=== PATIENT | female | born 1955 | race Caucasian/White ===

== ENCOUNTER 2022-04-24 16:01 | Observation (INO) ==
[2022-04-24 16:31] LABS: Basophils # 0.1 10*3/uL (0.0-0.2); Basophils % 0.5 % (0.0-0.8); Eosinophils # 0.1 10*3/uL (0.0-0.87); Eosinophils % 0.7 % (0.00-10.9); Hematocrit 41.9 VOL% (35.7-47.0); Hemoglobin 13.6 GM/DL (12.0-16.0); Immature Granulocytes % 0.5 %; Immature Granulocytes Absolute 0.06 #; Lymphocytes % 8.8 % (21.3-54.2); Mean Corpuscular HGB Conc 32.5 GM/DL (32-36); Mean Corpuscular Volume 86.2 FL (87-102); Mean Platelet Volume 10.6 FL (9.6-12.0); Monocytes # 0.6 10*3/uL (0.11-0.8); Monocytes % 5.2 % (1.7-12.7); Neutrophils % 84.3 % (38.7-73.9); Platelet Count 261 T/CUMM (130-400); Red Blood Count 4.86 MC/CUMM (3.8-5.5); Red Cell Distribution Width 14.7 % (9.3-17.3); White Blood Count 11.8 T/CUMM (4-12)
[2022-04-24 16:54] LABS: Albumin 3.4 G/DL (3.4-5.0); Bilirubin,Total 0.4 MG/DL (0.20-1.00); Calcium 9.2 MG/DL (8.5-10.1); Osmolality,Calculated 289.3 MOS/KG (273-304); Potassium 4.4 MMOL/L (3.5-5.1); Total Protein 6.8 G/DL (6.4-8.2)
[2022-04-24] MEDS ORDERED: ASPIRIN 325 MG TABLET PO STA (17:17)
[2022-04-24] MEDS ORDERED: FUROSEMIDE 40 MG/4 ML VIAL IV STA (17:18)
[2022-04-24 17:29] LABS: INR 0.9; PT Patient Result 9.9 SECS (10.1-12.1)
[2022-04-24] MEDS ORDERED: MORPHINE 2 MG/1 ML SYRINGE IV ONE (18:06)
[2022-04-24] MEDS ORDERED: ONDANSETRON 4 MG/2 ML VIAL IV ONE (18:06)
[2022-04-24] MEDS ORDERED: hydrALAZINE 20 MG/1 ML VIAL IV STA (18:06)
[2022-04-24] MEDS ORDERED: ONDANSETRON 4 MG/2 ML VIAL IV PRN (19:11)
[2022-04-24] MEDS ORDERED: DOCUSATE SODIUM 100 MG CAPSULE PO PRN (19:11)
[2022-04-24] MEDS ORDERED: ACETAMINOPHEN 325 MG TABLET PO PRN (19:11)
[2022-04-24] MEDS ORDERED: MORPHINE 2 MG/1 ML SYRINGE IV PRN (19:11)
[2022-04-24] MEDS ORDERED: NITROGLYCERIN SL 0.4 MG TABLET SL PRN (19:14)
[2022-04-24] MEDS ORDERED: ENOXAPARIN 100 MG/ML SYRINGE SUBCUT STA (19:45)
[2022-04-24] MEDS: hydrALAZINE 25 MG TABLET PO SCH (22:23)
[2022-04-24] MEDS: ZALEPLON 5 MG CAPSULE PO PRN (22:23)
[2022-04-24] MEDS: NEBIVOLOL 5 MG TABLET PO SCH (22:23)
[2022-04-24] MEDS: DAPAGLIFLOZIN 5 MG TABLET PO SCH (22:23)
[2022-04-24] MEDS: MONTELUKAST 10 MG TABLET PO SCH (22:23)
[2022-04-24] MEDS: INSULIN REGULAR 100 UNIT/ML SUBCUT SCH (22:43)
[2022-04-24] MEDS: DORZOLAMIDE/TIMOLOL OPH SOLN 10 ML BOTTLE LEFT EYE SCH (22:43)
[2022-04-24] MEDS: prednisoLONE ACETATE 1% OPH SUSP 5 ML BOTTLE LEFT EYE SCH (22:44)
[2022-04-25] MEDS: ZALEPLON 5 MG CAPSULE PO PRN ×2 (02:03→22:06)
[2022-04-25 05:47] LABS: Basophils # 0.1 10*3/uL (0.0-0.2); Basophils % 0.7 % (0.0-0.8); Eosinophils # 0.1 10*3/uL (0.0-0.87); Eosinophils % 1.8 % (0.00-10.9); Hematocrit 38.3 VOL% (35.7-47.0); Hemoglobin 12.1 GM/DL (12.0-16.0); Immature Granulocytes % 0.4 %; Immature Granulocytes Absolute 0.03 #; Lymphocytes # 1.6 10*3/uL (1.4-4.0); Mean Corpuscular HGB Conc 31.6 GM/DL (32-36); Mean Corpuscular Volume 87.6 FL (87-102); Mean Platelet Volume 11.1 FL (9.6-12.0); Monocytes % 13.8 % (1.7-12.7); Neutrophils % 61.3 % (38.7-73.9); Platelet Count 226 T/CUMM (130-400); Red Blood Count 4.37 MC/CUMM (3.8-5.5); Red Cell Distribution Width 14.8 % (9.3-17.3); White Blood Count 7.3 T/CUMM (4-12)
[2022-04-25 06:07] LABS: Risk Ratio 4.34; VLDL Cholesterol 39.2 MG/DL
[2022-04-25 06:14] LABS: Alanine Aminotransferase 18 U/L (13-56); Albumin 2.9 G/DL (3.4-5.0); Alkaline Phosphatase 57 U/L (45-117); Aspartate Amino Transferase 16 U/L (0-37); Bilirubin,Total < 0.39 MG/DL (0.20-1.00); Blood Urea Nitrogen 41 MG/DL (7-18); Calcium 8.8 MG/DL (8.5-10.1); Carbon Dioxide 29 MMOL/L (21-32); Chloride 106 MMOL/L (98-107); Glucose 104 MG/DL (74-106); Osmolality,Calculated 290.3 MOS/KG (273-304); Sodium 141 MMOL/L (136-145); Total Protein 6.5 G/DL (6.4-8.2)
[2022-04-25] MEDS: INSULIN REGULAR 100 UNIT/ML SUBCUT SCH ×4 (07:50→22:10)
[2022-04-25] MEDS ORDERED: MAGNESIUM SULF RIDER 2 GM/50 ML PREMIX IV PRN (08:33)
[2022-04-25] MEDS ORDERED: DIAZEPAM 5 MG TABLET PO ONE (08:33)
[2022-04-25] MEDS ORDERED: POTASSIUM CHLORIDE RIDER 10 MEQ/100 ML PREMIX IV PRN (08:33)
[2022-04-25] MEDS ORDERED: diphenhydrAMINE CAP 50 MG CAPSULE PO ONE (08:33)
[2022-04-25] MEDS ORDERED: SODIUM CHLORIDE 0.9% 1,000 ML IV SCH (09:00)
[2022-04-25] MEDS: LEVOTHYROXINE 75 MCG TABLET PO SCH (09:06)
[2022-04-25] MEDS: hydrALAZINE 25 MG TABLET PO SCH ×2 (09:06→22:09)
[2022-04-25] MEDS: ASPIRIN EC 81 MG TABLET PO SCH (09:07)
[2022-04-25] MEDS: CLOPIDOGREL 75 MG TABLET PO SCH (09:07)
[2022-04-25] MEDS: NEBIVOLOL 5 MG TABLET PO SCH (09:07)
[2022-04-25] MEDS: ISOSORBIDE MONONITRATE 60 MG TABLET PO SCH (09:07)
[2022-04-25] MEDS: CETIRIZINE 10 MG TABLET PO SCH (09:07)
[2022-04-25] MEDS: CYANOCOBALAMIN 500 MCG TABLET PO SCH (09:07)
[2022-04-25] MEDS: PANTOPRAZOLE 40 MG TABLET PO SCH (09:07)
[2022-04-25] MEDS: prednisoLONE ACETATE 1% OPH SUSP 5 ML BOTTLE LEFT EYE SCH ×2 (09:07→22:11)
[2022-04-25] MEDS: FUROSEMIDE 40 MG TABLET PO SCH (09:07)
[2022-04-25] MEDS: DORZOLAMIDE/TIMOLOL OPH SOLN 10 ML BOTTLE LEFT EYE SCH ×2 (10:48→21:00)
[2022-04-25] MEDS ORDERED: HEPARIN/NACL 0.9% 2 UNITS/ML 2,000 UNIT/1,000 ML BAG IV ONE (11:13)
[2022-04-25] MEDS ORDERED: MIDAZOLAM 2 MG/2 ML VIAL ONE ×2 (11:28→11:32)
[2022-04-25] MEDS ORDERED: fentaNYL 100 MCG/2 ML VIAL ONE (11:29)
[2022-04-25] MEDS: SODIUM CHLORIDE 0.9% 1,000 ML IV SCH (13:00)
[2022-04-25] MEDS: DAPAGLIFLOZIN 5 MG TABLET PO SCH (22:06)
[2022-04-25] MEDS: MONTELUKAST 10 MG TABLET PO SCH (22:06)
[2022-04-26] MEDS: SODIUM CHLORIDE 0.9% 1,000 ML IV SCH (01:52)
[2022-04-26 04:31] LABS: Basophils # 0.1 10*3/uL (0.0-0.2); Basophils % 0.7 % (0.0-0.8); Eosinophils # 0.2 10*3/uL (0.0-0.87); Eosinophils % 1.9 % (0.00-10.9); Hematocrit 36.8 VOL% (35.7-47.0); Hemoglobin 11.6 GM/DL (12.0-16.0); Immature Granulocytes % 0.3 %; Immature Granulocytes Absolute 0.03 #; Lymphocytes # 1.5 10*3/uL (1.4-4.0); Lymphocytes % 16.7 % (21.3-54.2); Mean Corpuscular HGB Conc 31.5 GM/DL (32-36); Mean Corpuscular Volume 87.4 FL (87-102); Mean Platelet Volume 10.6 FL (9.6-12.0); Monocytes # 1.1 10*3/uL (0.11-0.8); Monocytes % 11.7 % (1.7-12.7); Neutrophils % 68.7 % (38.7-73.9); Platelet Count 212 T/CUMM (130-400); Red Blood Count 4.21 MC/CUMM (3.8-5.5); Red Cell Distribution Width 14.8 % (9.3-17.3)
[2022-04-26 05:05] LABS: Calcium 8.4 MG/DL (8.5-10.1); Osmolality,Calculated 292.8 MOS/KG (273-304)
[2022-04-26] MEDS: LEVOTHYROXINE 75 MCG TABLET PO SCH (06:25)
[2022-04-26 08:02] VITALS: BP 162/76
[2022-04-26] MEDS: INSULIN REGULAR 100 UNIT/ML SUBCUT SCH (08:53)
[2022-04-26] MEDS: CLOPIDOGREL 75 MG TABLET PO SCH (08:54)
[2022-04-26] MEDS: ASPIRIN EC 81 MG TABLET PO SCH (08:54)
[2022-04-26] MEDS: DORZOLAMIDE/TIMOLOL OPH SOLN 10 ML BOTTLE LEFT EYE SCH (08:54)
[2022-04-26] MEDS: hydrALAZINE 25 MG TABLET PO SCH (08:54)
[2022-04-26] MEDS: ISOSORBIDE MONONITRATE 60 MG TABLET PO SCH (08:54)
[2022-04-26] MEDS: FUROSEMIDE 40 MG TABLET PO SCH (08:54)
[2022-04-26] MEDS: CETIRIZINE 10 MG TABLET PO SCH (08:55)
[2022-04-26] MEDS: CYANOCOBALAMIN 500 MCG TABLET PO SCH (08:55)
[2022-04-26] MEDS: PANTOPRAZOLE 40 MG TABLET PO SCH (08:55)
[2022-04-26] MEDS: prednisoLONE ACETATE 1% OPH SUSP 5 ML BOTTLE LEFT EYE SCH (08:55)
== END 2022-04-26 10:50 | disposition home or self-care (01) ==
LOC: N.EDINP 16:01 → N.ED 16:01 → N.EDINP 20:02 → N.TELES 20:26
PROVIDERS: ADMIT Internal Medicine; ATTEND Internal Medicine
PROC: CLCCHCL (ICD-10-PCS; 2022-04-25 09:45)

== ENCOUNTER 2022-05-18 00:58 | Inpatient (IN) ==
[2022-05-18 01:19] LABS: Basophils % 0.3 % (0.0-0.8); Eosinophils # 0.2 10*3/uL (0.0-0.87); Eosinophils % 2.5 % (0.00-10.9); Hemoglobin 14.1 GM/DL (12.0-16.0); Immature Granulocytes % 0.3 %; Immature Granulocytes Absolute 0.02 #; Mean Corpuscular Volume 87.3 FL (87-102); Mean Platelet Volume 10.6 FL (9.6-12.0); Monocytes # 0.7 10*3/uL (0.11-0.8); Monocytes % 9.7 % (1.7-12.7); Neutrophils % 73.2 % (38.7-73.9); Platelet Count 202 T/CUMM (130-400); Red Blood Count 5.04 MC/CUMM (3.8-5.5); White Blood Count 7.2 T/CUMM (4-12)
[2022-05-18 01:36] LABS: Alanine Aminotransferase 19 U/L (13-56); Albumin 3.1 G/DL (3.4-5.0); Alkaline Phosphatase 64 U/L (45-117); Aspartate Amino Transferase 11 U/L (0-37); Bilirubin,Total < 0.39 MG/DL (0.20-1.00); Blood Urea Nitrogen 37 MG/DL (7-18); Calcium 8.8 MG/DL (8.5-10.1); Carbon Dioxide 25 MMOL/L (21-32); Chloride 110 MMOL/L (98-107); Glucose 123 MG/DL (74-106); Osmolality,Calculated 292.1 MOS/KG (273-304); Potassium 4.3 MMOL/L (3.5-5.1); Sodium 142 MMOL/L (136-145); Total Protein 6.7 G/DL (6.4-8.2)
[2022-05-18] MEDS ORDERED: SODIUM CHLORIDE 0.9% 500 ML IV STA (02:29)
[2022-05-18] MEDS ORDERED: ENOXAPARIN 120 MG/0.8 ML SYRINGE SUBCUT STA (04:05)
[2022-05-18] MEDS ORDERED: ASPIRIN EC 325 MG TABLET PO STA (04:05)
[2022-05-18] MEDS ORDERED: NICOTINE 21 MG/24 HR PATCH TRANSDERM PRN (05:43)
[2022-05-18] MEDS ORDERED: ONDANSETRON 4 MG/2 ML VIAL IV PRN (05:43)
[2022-05-18] MEDS ORDERED: hydrALAZINE 20 MG/1 ML VIAL IV PRN (05:43)
[2022-05-18] MEDS ORDERED: ZALEPLON 5 MG CAPSULE PO PRN (05:43)
[2022-05-18] MEDS ORDERED: NITROGLYCERIN SL 0.4 MG TABLET SL PRN (05:46)
[2022-05-18] MEDS: PIPERACILLIN/TAZOBACTAM 3,375 MG in SODIUM CHLORIDE 0.9% 100 ML IV SCH ×2 (06:20→17:05)
[2022-05-18] MEDS: INSULIN LISPRO 100 UNIT/ML SUBCUT SCH ×4 (07:32→21:19)
[2022-05-18] MEDS ORDERED: FUROSEMIDE 40 MG TABLET PO SCH (09:00)
[2022-05-18] MEDS: ISOSORBIDE MONONITRATE 30 MG TABLET PO SCH (10:18)
[2022-05-18] MEDS: CLOPIDOGREL 75 MG TABLET PO SCH (10:18)
[2022-05-18] MEDS: ASPIRIN EC 81 MG TABLET PO SCH (10:18)
[2022-05-18] MEDS: CETIRIZINE 10 MG TABLET PO SCH (10:19)
[2022-05-18] MEDS: OSELTAMIVIR 30 MG CAPSULE PO SCH (10:19)
[2022-05-18] MEDS: BRIMONIDINE 0.2% OPH SOLN 5 ML BOTTLE BOTH EYES SCH ×2 (12:31→20:37)
[2022-05-18] MEDS: SODIUM CHLORIDE 0.9% 1,000 ML IV SCH ×3 (12:31→17:37)
[2022-05-18] MEDS: hydrALAZINE 25 MG TABLET PO SCH (20:28)
[2022-05-19] MEDS: SODIUM CHLORIDE 0.9% 1,000 ML IV SCH (02:37)
[2022-05-19 06:29] LABS: Basophils % 0.5 % (0.0-0.8); Eosinophils # 0.1 10*3/uL (0.0-0.87); Eosinophils % 3.5 % (0.00-10.9); Hematocrit 38.5 VOL% (35.7-47.0); Hemoglobin 12.3 GM/DL (12.0-16.0); Immature Granulocytes % 0.5 %; Immature Granulocytes Absolute 0.02 #; Lymphocytes # 1.2 10*3/uL (1.4-4.0); Lymphocytes % 32.3 % (21.3-54.2); Mean Corpuscular HGB Conc 31.9 GM/DL (32-36); Mean Corpuscular Volume 86.9 FL (87-102); Mean Platelet Volume 10.7 FL (9.6-12.0); Monocytes # 0.4 10*3/uL (0.11-0.8); Monocytes % 10.7 % (1.7-12.7); Neutrophils % 52.5 % (38.7-73.9); Platelet Count 174 T/CUMM (130-400); Red Blood Count 4.43 MC/CUMM (3.8-5.5); Red Cell Distribution Width 15.1 % (9.3-17.3); White Blood Count 3.8 T/CUMM (4-12)
[2022-05-19] MEDS: PIPERACILLIN/TAZOBACTAM 3,375 MG in SODIUM CHLORIDE 0.9% 100 ML IV SCH (06:48)
[2022-05-19 06:50] LABS: Calcium 8.2 MG/DL (8.5-10.1); Osmolality,Calculated 290.1 MOS/KG (273-304)
[2022-05-19] MEDS: INSULIN LISPRO 100 UNIT/ML SUBCUT SCH ×4 (08:42→21:38)
[2022-05-19] MEDS ORDERED: FUROSEMIDE 20 MG/2 ML VIAL IV ONE (08:49)
[2022-05-19] MEDS ORDERED: methylPREDNISolone SOD SUC 125 MG/2 ML VIAL IV ONE (09:02)
[2022-05-19] MEDS: DAPAGLIFLOZIN 5 MG TABLET PO SCH (10:18)
[2022-05-19] MEDS: hydrALAZINE 25 MG TABLET PO SCH ×2 (10:18→21:37)
[2022-05-19] MEDS: CLOPIDOGREL 75 MG TABLET PO SCH (10:18)
[2022-05-19] MEDS: CETIRIZINE 10 MG TABLET PO SCH (10:18)
[2022-05-19] MEDS: LEVOTHYROXINE 75 MCG TABLET PO SCH (10:18)
[2022-05-19] MEDS: ISOSORBIDE MONONITRATE 30 MG TABLET PO SCH (10:18)
[2022-05-19] MEDS: ASPIRIN EC 81 MG TABLET PO SCH (10:18)
[2022-05-19] MEDS: OSELTAMIVIR 30 MG CAPSULE PO SCH (10:18)
[2022-05-19] MEDS: BRIMONIDINE 0.2% OPH SOLN 5 ML BOTTLE BOTH EYES SCH ×2 (10:22→21:39)
[2022-05-19] MEDS ORDERED: GLUCAGON 1 MG VIAL IM PRN (10:55)
[2022-05-19] MEDS ORDERED: DEXTROSE 10% 250 ML BAG IV PRN (10:55)
[2022-05-19] MEDS ORDERED: cefTRIAXone 1,000 MG in SODIUM CHLORIDE 0.9% 100 ML IV SCH (11:00)
[2022-05-19] MEDS: CLINDAMYCIN 150 MG CAPSULE PO SCH ×2 (13:29→21:38)
[2022-05-19] MEDS ORDERED: MONTELUKAST 10 MG TABLET PO SCH (21:00)
[2022-05-19] MEDS: MONTELUKAST 10 MG TABLET PO SCH (21:38)
[2022-05-19] MEDS: methylPREDNISolone SOD SUC 40 MG/1 ML VIAL IV SCH (21:39)
[2022-05-20] MEDS: CLINDAMYCIN 150 MG CAPSULE PO SCH ×3 (05:30→21:05)
[2022-05-20 06:00] LABS: Basophils % 0.2 % (0.0-0.8); Hematocrit 39.4 VOL% (35.7-47.0); Hemoglobin 12.7 GM/DL (12.0-16.0); Immature Granulocytes % 0.5 %; Immature Granulocytes Absolute 0.02 #; Lymphocytes # 0.8 10*3/uL (1.4-4.0); Lymphocytes % 20.3 % (21.3-54.2); Mean Corpuscular HGB Conc 32.2 GM/DL (32-36); Mean Corpuscular Volume 84.9 FL (87-102); Mean Platelet Volume 11.1 FL (9.6-12.0); Monocytes # 0.1 10*3/uL (0.11-0.8); Monocytes % 2.7 % (1.7-12.7); Neutrophils % 76.3 % (38.7-73.9); Platelet Count 205 T/CUMM (130-400); Red Blood Count 4.64 MC/CUMM (3.8-5.5)
[2022-05-20 06:18] LABS: Calcium 8.5 MG/DL (8.5-10.1); Osmolality,Calculated 287.8 MOS/KG (273-304); Potassium 4.4 MMOL/L (3.5-5.1)
[2022-05-20] MEDS: hydrALAZINE 25 MG TABLET PO SCH ×2 (10:02→21:04)
[2022-05-20] MEDS: ISOSORBIDE MONONITRATE 30 MG TABLET PO SCH (10:02)
[2022-05-20] MEDS: LEVOTHYROXINE 75 MCG TABLET PO SCH (10:02)
[2022-05-20] MEDS: OSELTAMIVIR 30 MG CAPSULE PO SCH (10:02)
[2022-05-20] MEDS: MONTELUKAST 10 MG TABLET PO SCH ×2 (10:02→21:05)
[2022-05-20] MEDS: ASPIRIN EC 81 MG TABLET PO SCH (10:02)
[2022-05-20] MEDS: CLOPIDOGREL 75 MG TABLET PO SCH (10:02)
[2022-05-20] MEDS: CETIRIZINE 10 MG TABLET PO SCH (10:02)
[2022-05-20] MEDS: INSULIN LISPRO 100 UNIT/ML SUBCUT SCH ×4 (10:03→21:04)
[2022-05-20] MEDS: methylPREDNISolone SOD SUC 40 MG/1 ML VIAL IV SCH (10:03)
[2022-05-20] MEDS: DAPAGLIFLOZIN 5 MG TABLET PO SCH (10:08)
[2022-05-20] MEDS: BRIMONIDINE 0.2% OPH SOLN 5 ML BOTTLE BOTH EYES SCH ×2 (10:09→21:04)
[2022-05-21 05:54] LABS: Basophils % 0.3 % (0.0-0.8); Hematocrit 37.6 VOL% (35.7-47.0); Hemoglobin 12.4 GM/DL (12.0-16.0); Immature Granulocytes % 0.6 %; Immature Granulocytes Absolute 0.05 #; Lymphocytes # 1.5 10*3/uL (1.4-4.0); Lymphocytes % 19.1 % (21.3-54.2); Mean Corpuscular Volume 84.9 FL (87-102); Mean Platelet Volume 10.9 FL (9.6-12.0); Monocytes # 0.6 10*3/uL (0.11-0.8); Monocytes % 7.7 % (1.7-12.7); Neutrophils % 72.3 % (38.7-73.9); Platelet Count 238 T/CUMM (130-400); Red Blood Count 4.43 MC/CUMM (3.8-5.5); White Blood Count 7.8 T/CUMM (4-12)
[2022-05-21 06:21] LABS: Calcium 8.4 MG/DL (8.5-10.1); Osmolality,Calculated 295.4 MOS/KG (273-304); Potassium 4.2 MMOL/L (3.5-5.1)
[2022-05-21] MEDS: CLINDAMYCIN 150 MG CAPSULE PO SCH (06:35)
[2022-05-21 07:48] VITALS: BP 178/66
[2022-05-21] MEDS ORDERED: predniSONE 20 MG TABLET PO SCH (09:00)
[2022-05-21] MEDS: ASPIRIN EC 81 MG TABLET PO SCH (10:48)
[2022-05-21] MEDS: LEVOTHYROXINE 75 MCG TABLET PO SCH (10:48)
[2022-05-21] MEDS: hydrALAZINE 25 MG TABLET PO SCH (10:49)
[2022-05-21] MEDS: CLOPIDOGREL 75 MG TABLET PO SCH (10:49)
[2022-05-21] MEDS: OSELTAMIVIR 30 MG CAPSULE PO SCH (10:49)
[2022-05-21] MEDS: ISOSORBIDE MONONITRATE 30 MG TABLET PO SCH (10:49)
[2022-05-21] MEDS: MONTELUKAST 10 MG TABLET PO SCH (10:49)
[2022-05-21] MEDS: CETIRIZINE 10 MG TABLET PO SCH (10:49)
[2022-05-21] MEDS: INSULIN LISPRO 100 UNIT/ML SUBCUT SCH (10:50)
[2022-05-21] MEDS: BRIMONIDINE 0.2% OPH SOLN 5 ML BOTTLE BOTH EYES SCH (10:50)
[2022-05-21] MEDS: DAPAGLIFLOZIN 5 MG TABLET PO SCH (10:52)
== END 2022-05-21 12:20 | disposition home or self-care (01) | DRG 280 ==
LOC: N.ED 00:58 → N.EDINP 05:43 → N.TELEN 15:09
PROVIDERS: ADMIT Internal Medicine; ATTEND Internal Medicine

== ENCOUNTER 2022-07-14 02:56 | Observation (INO) ==
[2022-07-14 03:30] LABS: Basophils # 0.1 10*3/uL (0.0-0.2); Basophils % 0.6 % (0.0-0.8); Eosinophils # 0.4 10*3/uL (0.0-0.87); Eosinophils % 3.5 % (0.00-10.9); Hematocrit 39.9 VOL% (35.7-47.0); Hemoglobin 12.7 GM/DL (12.0-16.0); Immature Granulocytes % 0.6 %; Immature Granulocytes Absolute 0.07 #; Lymphocytes # 1.4 10*3/uL (1.4-4.0); Lymphocytes % 11.9 % (21.3-54.2); Mean Corpuscular HGB Conc 31.8 GM/DL (32-36); Mean Corpuscular Volume 87.9 FL (87-102); Mean Platelet Volume 10.8 FL (9.6-12.0); Monocytes % 8.9 % (1.7-12.7); Neutrophils % 74.5 % (38.7-73.9); Platelet Count 257 T/CUMM (130-400); Red Blood Count 4.54 MC/CUMM (3.8-5.5); Red Cell Distribution Width 15.2 % (9.3-17.3); White Blood Count 11.3 T/CUMM (4-12)
[2022-07-14] MEDS ORDERED: DILTIAZEM INJ 100 MG in SODIUM CHLORIDE 0.9% 100 ML IV SCH (03:30)
[2022-07-14] MEDS ORDERED: ONDANSETRON 4 MG/2 ML VIAL ONE (03:31)
[2022-07-14] MEDS ORDERED: DILTIAZEM 50 MG/10 ML VIAL IV STA (03:42)
[2022-07-14] MEDS ORDERED: ASPIRIN 325 MG TABLET PO STA (03:42)
[2022-07-14] MEDS ORDERED: ENOXAPARIN 100 MG/ML SYRINGE SUBCUT STA (03:42)
[2022-07-14] MEDS ORDERED: ONDANSETRON 4 MG/2 ML VIAL IV STA (03:48)
[2022-07-14] MEDS ORDERED: MORPHINE 2 MG/1 ML SYRINGE IV STA (03:48)
[2022-07-14 03:52] LABS: Alanine Aminotransferase 22 U/L (13-56); Albumin 3.1 G/DL (3.4-5.0); Alkaline Phosphatase 76 U/L (45-117); Aspartate Amino Transferase 6 U/L (0-37); Bilirubin,Total < 0.39 MG/DL (0.20-1.00); Blood Urea Nitrogen 43 MG/DL (7-18); Calcium 9.1 MG/DL (8.5-10.1); Carbon Dioxide 23 MMOL/L (21-32); Chloride 106 MMOL/L (98-107); Glucose 320 MG/DL (74-106); Osmolality,Calculated 297.7 MOS/KG (273-304); Sodium 138 MMOL/L (136-145); Total Protein 6.7 G/DL (6.4-8.2)
[2022-07-14 03:53] LABS: Bacteria,Urine Occasional /HPF (Few); Mucus,Urine Occasional /LPF (Occasional); RBC,Urine 5 /HPF (0-4); Squamous Epithelial Cell,Urine Occasional /HPF (0-10)
[2022-07-14 03:54] LABS: Bilirubin,Urine Negative (Negative); Blood, Urine Negative (Negative); Glucose,Urine (UA) >=1000 mg/dL (Negative); Ketones,Urine Negative (Negative); Nitrite,Urine Negative (Negative); Protein,Urine 100 mg/dL (Negative); Urine Appearance Clear (Clear); Urine Color Yellow (Yellow); Urine Specific Gravity 1.015 (1.001-1.035); Urine Urobilinogen 0.2 eU/dL (<2.0)
[2022-07-14] MEDS ORDERED: INSULIN REGULAR 100 UNIT/ML SUBCUT STA (03:56)
[2022-07-14 03:59] LABS: INR 0.8; PT Patient Result 9.4 SECS (10.1-12.1)
[2022-07-14 04:19] LABS: Thyroid Stimulating Hormone 4.02 uIU/ml (0.358-3.74)
[2022-07-14] MEDS ORDERED: MORPHINE 2 MG/1 ML SYRINGE IV PRN (05:07)
[2022-07-14] MEDS ORDERED: ONDANSETRON 4 MG/2 ML VIAL IV PRN (05:07)
[2022-07-14] MEDS ORDERED: ACETAMINOPHEN 325 MG TABLET PO PRN (05:07)
[2022-07-14] MEDS ORDERED: hydrALAZINE 20 MG/1 ML VIAL IV PRN (05:07)
[2022-07-14 06:12] LABS: Barbiturates Screen,Urine Negative (Negative); Benzodiazepines Screen,Urine Negative (Negative); Cannabinoid Screen,Urine Negative (Negative); Opiate Screen,Urine Negative (Negative); Phencyclidine Screen,Urine Negative (Negative)
[2022-07-14 07:53] LABS: Free T4 (Free Thyroxine) 0.9 NG/DL (0.76-1.46)
[2022-07-14] MEDS ORDERED: PANTOPRAZOLE 40 MG TABLET PO SCH (09:00)
[2022-07-14] MEDS ORDERED: METOPROLOL TARTRATE 25 MG TABLET PO SCH (09:00)
[2022-07-14] MEDS ORDERED: FUROSEMIDE 40 MG/4 ML VIAL IV ONE (09:57)
[2022-07-14] MEDS ORDERED: ASCORBIC ACID 500 MG TABLET PO SCH (09:58)
[2022-07-14] MEDS ORDERED: ASPIRIN EC 81 MG TABLET PO SCH (10:00)
[2022-07-14] MEDS ORDERED: CLOPIDOGREL 75 MG TABLET PO SCH (10:00)
[2022-07-14] MEDS ORDERED: ISOSORBIDE MONONITRATE 60 MG TABLET PO SCH (10:00)
[2022-07-14] MEDS ORDERED: DAPAGLIFLOZIN 5 MG TABLET PO SCH (10:00)
[2022-07-14] MEDS: INSULIN LISPRO 100 UNIT/ML SUBCUT SCH ×3 (10:15→17:58)
[2022-07-14] MEDS ORDERED: ENOXAPARIN 40 MG/0.4 ML SYRINGE SUBCUT SCH (16:00)
[2022-07-14 16:44] VITALS: BP 104/64
== END 2022-07-14 16:58 | disposition home or self-care (01) ==
LOC: N.ED 02:56 → N.EDINP 02:56 → N.TELEN 07:38
PROVIDERS: ADMIT Emergency Medicine; ATTEND Emergency Medicine

== ENCOUNTER 2022-08-14 15:55 | Inpatient (IN) ==
[2022-08-14] MEDS ORDERED: ACETAMINOPHEN 325 MG TABLET PO ONE (16:32)
[2022-08-14] MEDS ORDERED: ONDANSETRON 4 MG/2 ML VIAL IV ONE (16:32)
[2022-08-14] MEDS ORDERED: SODIUM CHLORIDE 0.9% 500 ML IV STA ×2 (16:32→17:23)
[2022-08-14 16:58] LABS: Basophils % 0.4 % (0.0-0.8); Eosinophils % 0.1 % (0.00-10.9); Hematocrit 40.9 VOL% (35.7-47.0); Immature Granulocytes % 0.6 %; Immature Granulocytes Absolute 0.06 #; Lymphocytes # 0.8 10*3/uL (1.4-4.0); Lymphocytes % 7.9 % (21.3-54.2); Mean Corpuscular HGB Conc 31.8 GM/DL (32-36); Mean Corpuscular Volume 84.5 FL (87-102); Mean Platelet Volume 9.9 FL (9.6-12.0); Monocytes # 1.2 10*3/uL (0.11-0.8); Monocytes % 11.3 % (1.7-12.7); Neutrophils % 79.7 % (38.7-73.9); Platelet Count 282 T/CUMM (130-400); Red Blood Count 4.84 MC/CUMM (3.8-5.5); Red Cell Distribution Width 14.6 % (9.3-17.3)
[2022-08-14 17:17] LABS: Albumin 2.4 G/DL (3.4-5.0); Bilirubin,Total 0.5 MG/DL (0.20-1.00); Calcium 8.8 MG/DL (8.5-10.1); Osmolality,Calculated 287.2 MOS/KG (273-304); Potassium 3.9 MMOL/L (3.5-5.1); Total Protein 7.7 G/DL (6.4-8.2)
[2022-08-14 17:33] LABS: Lymphocytes 11 % (20-55); Total Cells Counted 100
[2022-08-14 17:34] LABS: Platelet Estimate Adequate
[2022-08-14 17:35] LABS: PT Patient Result 10.6 SECS (10.1-12.1)
[2022-08-14] MEDS ORDERED: PROCHLORPERAZINE 10 MG/2 ML VIAL ONE (18:28)
[2022-08-14] MEDS ORDERED: PROCHLORPERAZINE 10 MG/2 ML VIAL IV ONE (18:28)
[2022-08-14 18:32] LABS: Bilirubin,Urine Negative (Negative); Blood, Urine Moderate mg/dL (Negative); Glucose,Urine (UA) 250 mg/dL (Negative); Ketones,Urine Negative (Negative); Nitrite,Urine Negative (Negative); Protein,Urine >=300 mg/dL (Negative); Urine Appearance Cloudy (Clear); Urine Color Yellow (Yellow); Urine Urobilinogen 0.2 eU/dL (<2.0)
[2022-08-14 18:36] LABS: Bacteria,Urine Moderate /HPF (Few); Hyaline Casts,Urine 10 /LPF (0-3); Mucus,Urine Occasional /LPF (Occasional); RBC,Urine 50 /HPF (0-4); Squamous Epithelial Cell,Urine Occasional /HPF (0-10)
[2022-08-14] MEDS ORDERED: cefTRIAXone 1,000 MG in SODIUM CHLORIDE 0.9% 100 ML IV STA (18:39)
[2022-08-14] MEDS ORDERED: MAGNESIUM SULF RIDER 4 GM/100 ML PREMIX IV PRN (19:28)
[2022-08-14] MEDS ORDERED: hydrALAZINE 20 MG/1 ML VIAL IV PRN (19:28)
[2022-08-14] MEDS ORDERED: MAGNESIUM SULF RIDER 2 GM/50 ML PREMIX IV PRN (19:28)
[2022-08-14] MEDS: LACTATED RINGERS 1,000 ML IV SCH (21:20)
[2022-08-14] MEDS: ENOXAPARIN 40 MG/0.4 ML SYRINGE SUBCUT SCH (23:20)
[2022-08-14] MEDS: ONDANSETRON 4 MG/2 ML VIAL IV PRN (23:21)
[2022-08-15] MEDS: INSULIN LISPRO 100 UNIT/ML SUBCUT SCH ×5 (00:28→22:01)
[2022-08-15] MEDS: PROMETHAZINE 25 MG/1 ML VIAL IM PRN ×2 (03:05→13:06)
[2022-08-15 06:01] LABS: Basophils % 0.4 % (0.0-0.8); Eosinophils % 0.2 % (0.00-10.9); Hematocrit 33.3 VOL% (35.7-47.0); Hemoglobin 10.9 GM/DL (12.0-16.0); Immature Granulocytes % 0.7 %; Immature Granulocytes Absolute 0.07 #; Lymphocytes # 0.8 10*3/uL (1.4-4.0); Lymphocytes % 7.5 % (21.3-54.2); Mean Corpuscular HGB Conc 32.7 GM/DL (32-36); Mean Corpuscular Volume 85.2 FL (87-102); Mean Platelet Volume 10.5 FL (9.6-12.0); Monocytes # 1.3 10*3/uL (0.11-0.8); Monocytes % 12.2 % (1.7-12.7); Platelet Count 255 T/CUMM (130-400); Red Blood Count 3.91 MC/CUMM (3.8-5.5); Red Cell Distribution Width 14.6 % (9.3-17.3)
[2022-08-15 06:49] LABS: Calcium 8.1 MG/DL (8.5-10.1); Osmolality,Calculated 289.8 MOS/KG (273-304); Potassium 3.9 MMOL/L (3.5-5.1); Thyroid Stimulating Hormone 4.31 uIU/ml (0.358-3.74)
[2022-08-15] MEDS: LACTATED RINGERS 1,000 ML IV SCH ×2 (07:50→17:53)
[2022-08-15] MEDS: PANTOPRAZOLE 40 MG VIAL IV SCH (08:24)
[2022-08-15] MEDS: ONDANSETRON 4 MG/2 ML VIAL IV PRN ×2 (11:17→19:38)
[2022-08-15] MEDS ORDERED: DEXTROSE 10% 1,000 ML IV PRN (17:47)
[2022-08-15] MEDS ORDERED: cefTRIAXone 1,000 MG in SODIUM CHLORIDE 0.9% 100 ML IV SCH (18:00)
[2022-08-15] MEDS ORDERED: AMINO ACIDS/DEXT/LYTES 4.25-5% 2,000 ML IV SCH (18:00)
[2022-08-15] MEDS: METOCLOPRAMIDE 10 MG/2 ML VIAL IV SCH (18:43)
[2022-08-15] MEDS: ENOXAPARIN 40 MG/0.4 ML SYRINGE SUBCUT SCH (22:04)
[2022-08-15] MEDS: PIPERACILLIN/TAZOBACTAM 3,375 MG in SODIUM CHLORIDE 0.9% 100 ML IV SCH (22:04)
[2022-08-15] MEDS: FAT EMULSION 20% 250 ML IV SCH (23:05)
[2022-08-16] MEDS: METOCLOPRAMIDE 10 MG/2 ML VIAL IV SCH ×5 (00:55→23:54)
[2022-08-16] MEDS: ONDANSETRON 4 MG/2 ML VIAL IV PRN ×2 (02:05→12:54)
[2022-08-16] MEDS: PROMETHAZINE 25 MG/1 ML VIAL IM PRN ×2 (03:28→23:52)
[2022-08-16 05:14] LABS: Basophils # 0.1 10*3/uL (0.0-0.2); Basophils % 0.6 % (0.0-0.8); Eosinophils # 0.1 10*3/uL (0.0-0.87); Eosinophils % 1.1 % (0.00-10.9); Hematocrit 35.5 VOL% (35.7-47.0); Immature Granulocytes % 0.6 %; Immature Granulocytes Absolute 0.06 #; Lymphocytes # 1.2 10*3/uL (1.4-4.0); Lymphocytes % 11.9 % (21.3-54.2); Mean Platelet Volume 10.6 FL (9.6-12.0); Monocytes % 10.4 % (1.7-12.7); Neutrophils % 75.4 % (38.7-73.9); Platelet Count 289 T/CUMM (130-400); Red Blood Count 4.08 MC/CUMM (3.8-5.5); Red Cell Distribution Width 14.7 % (9.3-17.3); White Blood Count 9.74 T/CUMM (4-12)
[2022-08-16] MEDS: PIPERACILLIN/TAZOBACTAM 3,375 MG in SODIUM CHLORIDE 0.9% 100 ML IV SCH ×3 (05:30→22:12)
[2022-08-16 05:32] LABS: Calcium 8.5 MG/DL (8.5-10.1); Osmolality,Calculated 287.5 MOS/KG (273-304)
[2022-08-16] MEDS: DAPAGLIFLOZIN 5 MG TABLET PO SCH (08:35)
[2022-08-16] MEDS: INSULIN LISPRO 100 UNIT/ML SUBCUT SCH ×4 (08:35→23:37)
[2022-08-16] MEDS: PANTOPRAZOLE 40 MG VIAL IV SCH ×2 (08:35→22:13)
[2022-08-16] MEDS: hydrALAZINE 25 MG TABLET PO SCH ×3 (08:36→23:37)
[2022-08-16] MEDS: ASPIRIN EC 81 MG TABLET PO SCH (08:36)
[2022-08-16] MEDS: ISOSORBIDE MONONITRATE 60 MG TABLET PO SCH (08:36)
[2022-08-16] MEDS ORDERED: CLOPIDOGREL 75 MG TABLET PO SCH (09:00)
[2022-08-16] MEDS: LACTATED RINGERS 1,000 ML IV SCH (11:26)
[2022-08-16] MEDS: DILTIAZEM 30 MG TABLET PO SCH ×3 (12:54→23:55)
[2022-08-16] MEDS ORDERED: DEXTROSE 10% 250 ML BAG IV PRN (14:01)
[2022-08-16] MEDS ORDERED: GLUCAGON 1 MG VIAL IM PRN (14:01)
[2022-08-16] MEDS ORDERED: AMINO ACIDS/DEXT/LYTES 4.25-5% 1,000 ML IV SCH (17:00)
[2022-08-16] MEDS: FAT EMULSION 20% 250 ML IV SCH (17:56)
[2022-08-16] MEDS ORDERED: LUBIPROSTONE 24 MCG CAPSULE PO SCH (21:00)
[2022-08-16] MEDS: POLYETHYLENE GLYCOL POWDER 17 GM PACK PO SCH (22:14)
[2022-08-16] MEDS: DOCUSATE SODIUM 100 MG CAPSULE PO SCH (22:15)
[2022-08-17] MEDS ORDERED: FUROSEMIDE 20 MG/2 ML VIAL IV ONE (01:42)
[2022-08-17] MEDS ORDERED: FUROSEMIDE 40 MG/4 ML VIAL ONE (01:44)
[2022-08-17] MEDS: METOCLOPRAMIDE 10 MG/2 ML VIAL IV SCH ×3 (06:05→17:48)
[2022-08-17] MEDS: PIPERACILLIN/TAZOBACTAM 3,375 MG in SODIUM CHLORIDE 0.9% 100 ML IV SCH (06:05)
[2022-08-17] MEDS: DILTIAZEM 30 MG TABLET PO SCH ×3 (06:05→17:57)
[2022-08-17 06:12] LABS: Calcium 8.5 MG/DL (8.5-10.1); Osmolality,Calculated 285.7 MOS/KG (273-304)
[2022-08-17 06:16] LABS: Basophils # 0.1 10*3/uL (0.0-0.2); Basophils % 0.4 % (0.0-0.8); Eosinophils # 0.1 10*3/uL (0.0-0.87); Eosinophils % 0.9 % (0.00-10.9); Hematocrit 33.8 VOL% (35.7-47.0); Hemoglobin 10.7 GM/DL (12.0-16.0); Immature Granulocytes % 0.8 %; Immature Granulocytes Absolute 0.11 #; Lymphocytes # 0.7 10*3/uL (1.4-4.0); Lymphocytes % 5.2 % (21.3-54.2); Mean Corpuscular HGB Conc 31.7 GM/DL (32-36); Mean Corpuscular Volume 86.2 FL (87-102); Mean Platelet Volume 10.4 FL (9.6-12.0); Monocytes # 1.1 10*3/uL (0.11-0.8); Monocytes % 7.7 % (1.7-12.7); Platelet Count 275 T/CUMM (130-400); Red Blood Count 3.92 MC/CUMM (3.8-5.5); Red Cell Distribution Width 14.7 % (9.3-17.3); White Blood Count 14.11 T/CUMM (4-12)
[2022-08-17] MEDS ORDERED: LINACLOTIDE 145 MCG CAPSULE PO SCH (07:30)
[2022-08-17] MEDS: INSULIN LISPRO 100 UNIT/ML SUBCUT SCH ×4 (08:20→23:39)
[2022-08-17] MEDS ORDERED: propofoL 200 MG/20 ML VIAL IV ONE (08:47)
[2022-08-17] MEDS ORDERED: LIDOCAINE 2% 5 ML VIAL ONE (08:47)
[2022-08-17] MEDS: POLYETHYLENE GLYCOL POWDER 17 GM PACK PO SCH ×2 (10:37→22:41)
[2022-08-17] MEDS: DAPAGLIFLOZIN 5 MG TABLET PO SCH (10:38)
[2022-08-17] MEDS: PANTOPRAZOLE 40 MG VIAL IV SCH ×2 (10:38→22:43)
[2022-08-17] MEDS: ASPIRIN EC 81 MG TABLET PO SCH (10:38)
[2022-08-17] MEDS: ISOSORBIDE MONONITRATE 60 MG TABLET PO SCH (10:38)
[2022-08-17] MEDS: DOCUSATE SODIUM 100 MG CAPSULE PO SCH ×2 (10:38→22:43)
[2022-08-17] MEDS: hydrALAZINE 25 MG TABLET PO SCH ×3 (10:43→22:46)
[2022-08-17] MEDS: LEVOFLOXACIN INJ 500 MG/100 ML PREMIX IV SCH (11:33)
[2022-08-17] MEDS: LACTATED RINGERS 1,000 ML IV SCH (11:54)
[2022-08-17] MEDS: ONDANSETRON 4 MG/2 ML VIAL IV PRN (17:05)
[2022-08-17] MEDS: MONTELUKAST 10 MG TABLET PO SCH (22:43)
[2022-08-17] MEDS: ENOXAPARIN 40 MG/0.4 ML SYRINGE SUBCUT SCH (22:45)
[2022-08-18] MEDS: DILTIAZEM 30 MG TABLET PO SCH ×4 (00:22→18:09)
[2022-08-18] MEDS: METOCLOPRAMIDE 10 MG/2 ML VIAL IV SCH ×2 (00:23→07:31)
[2022-08-18 05:37] LABS: Basophils % 0.5 % (0.0-0.8); Eosinophils # 0.4 10*3/uL (0.0-0.87); Eosinophils % 4.5 % (0.00-10.9); Hematocrit 28.3 VOL% (35.7-47.0); Hemoglobin 8.9 GM/DL (12.0-16.0); Immature Granulocytes % 1.8 %; Immature Granulocytes Absolute 0.14 #; Lymphocytes # 1.5 10*3/uL (1.4-4.0); Lymphocytes % 19.7 % (21.3-54.2); Mean Corpuscular HGB Conc 31.4 GM/DL (32-36); Mean Corpuscular Volume 87.1 FL (87-102); Mean Platelet Volume 10.3 FL (9.6-12.0); Monocytes # 0.7 10*3/uL (0.11-0.8); Monocytes % 9.1 % (1.7-12.7); Neutrophils % 64.4 % (38.7-73.9); Platelet Count 303 T/CUMM (130-400); Red Blood Count 3.25 MC/CUMM (3.8-5.5); Red Cell Distribution Width 14.7 % (9.3-17.3); White Blood Count 7.81 T/CUMM (4-12)
[2022-08-18 05:50] LABS: Calcium 8.1 MG/DL (8.5-10.1); Osmolality,Calculated 291.7 MOS/KG (273-304); Potassium 4.2 MMOL/L (3.5-5.1)
[2022-08-18 06:16] LABS: Platelet Estimate Adequate
[2022-08-18] MEDS: LINACLOTIDE 145 MCG CAPSULE PO SCH (07:30)
[2022-08-18] MEDS: PROMETHAZINE INJ 25 MG in SODIUM CHLORIDE 0.9% 50 ML IV SCH ×3 (07:52→20:48)
[2022-08-18] MEDS: INSULIN LISPRO 100 UNIT/ML SUBCUT SCH ×5 (10:08→21:00)
[2022-08-18] MEDS: PANTOPRAZOLE 40 MG VIAL IV SCH ×2 (11:45→20:46)
[2022-08-18] MEDS: hydrALAZINE 25 MG TABLET PO SCH ×3 (11:51→20:49)
[2022-08-18] MEDS: DOCUSATE SODIUM 100 MG CAPSULE PO SCH ×2 (11:51→20:48)
[2022-08-18] MEDS: DAPAGLIFLOZIN 5 MG TABLET PO SCH (11:51)
[2022-08-18] MEDS: ASPIRIN EC 81 MG TABLET PO SCH (11:51)
[2022-08-18] MEDS: ISOSORBIDE MONONITRATE 60 MG TABLET PO SCH (11:52)
[2022-08-18] MEDS: POLYETHYLENE GLYCOL POWDER 17 GM PACK PO SCH ×2 (11:52→20:49)
[2022-08-18] MEDS: LACTATED RINGERS 1,000 ML IV SCH (14:11)
[2022-08-18] MEDS: LEVOFLOXACIN INJ 500 MG/100 ML PREMIX IV SCH (15:36)
[2022-08-18] MEDS ORDERED: MYLANTA/LIDO VISC 2:1 300 ML BOTTLE SWISH/SPIT PRN (16:30)
[2022-08-18] MEDS: ENOXAPARIN 40 MG/0.4 ML SYRINGE SUBCUT SCH (20:48)
[2022-08-18] MEDS: MONTELUKAST 10 MG TABLET PO SCH (20:48)
[2022-08-19] MEDS: DILTIAZEM 30 MG TABLET PO SCH ×4 (00:51→19:55)
[2022-08-19] MEDS: PROMETHAZINE INJ 25 MG in SODIUM CHLORIDE 0.9% 50 ML IV SCH (03:05)
[2022-08-19 05:47] LABS: Basophils % 0.5 % (0.0-0.8); Eosinophils # 0.2 10*3/uL (0.0-0.87); Eosinophils % 3.1 % (0.00-10.9); Hemoglobin 6.8 GM/DL (12.0-16.0); Immature Granulocytes % 2.7 %; Immature Granulocytes Absolute 0.21 #; Lymphocytes # 1.5 10*3/uL (1.4-4.0); Lymphocytes % 19.2 % (21.3-54.2); Mean Corpuscular HGB Conc 30.9 GM/DL (32-36); Mean Corpuscular Volume 87.6 FL (87-102); Mean Platelet Volume 10.7 FL (9.6-12.0); Monocytes # 0.6 10*3/uL (0.11-0.8); Neutrophils % 66.5 % (38.7-73.9); Platelet Count 310 T/CUMM (130-400); Red Blood Count 2.51 MC/CUMM (3.8-5.5); Red Cell Distribution Width 14.8 % (9.3-17.3); White Blood Count 7.83 T/CUMM (4-12)
[2022-08-19 06:05] LABS: Calcium 8.2 MG/DL (8.5-10.1); Osmolality,Calculated 302.3 MOS/KG (273-304); Potassium 4.4 MMOL/L (3.5-5.1)
[2022-08-19] MEDS: INSULIN LISPRO 100 UNIT/ML SUBCUT SCH ×4 (08:19→21:49)
[2022-08-19] MEDS: PANTOPRAZOLE 40 MG VIAL IV SCH ×2 (08:24→21:00)
[2022-08-19] MEDS: DAPAGLIFLOZIN 5 MG TABLET PO SCH (08:25)
[2022-08-19] MEDS: METOCLOPRAMIDE 5 MG TABLET PO SCH ×2 (08:26→11:56)
[2022-08-19] MEDS: ASPIRIN EC 81 MG TABLET PO SCH (08:26)
[2022-08-19] MEDS: LINACLOTIDE 145 MCG CAPSULE PO SCH (08:26)
[2022-08-19] MEDS: DOCUSATE SODIUM 100 MG CAPSULE PO SCH (08:26)
[2022-08-19] MEDS: POLYETHYLENE GLYCOL POWDER 17 GM PACK PO SCH (08:28)
[2022-08-19] MEDS: ISOSORBIDE MONONITRATE 60 MG TABLET PO SCH (08:28)
[2022-08-19] MEDS: hydrALAZINE 25 MG TABLET PO SCH ×3 (11:20→21:54)
[2022-08-19] MEDS: LEVOFLOXACIN INJ 500 MG/100 ML PREMIX IV SCH (12:07)
[2022-08-19] MEDS ORDERED: SODIUM CHLORIDE 0.9% 1,000 ML IV PRN (12:18)
[2022-08-19] MEDS: ONDANSETRON 4 MG/2 ML VIAL IV PRN (12:19)
[2022-08-19] MEDS: MONTELUKAST 10 MG TABLET PO SCH (21:50)
[2022-08-19] MEDS: ENOXAPARIN 40 MG/0.4 ML SYRINGE SUBCUT SCH ×2 (21:52)
[2022-08-20] MEDS: DILTIAZEM 30 MG TABLET PO SCH ×4 (00:14→17:01)
[2022-08-20 05:48] LABS: Basophils # 0.1 10*3/uL (0.0-0.2); Basophils % 0.9 % (0.0-0.8); Eosinophils # 0.4 10*3/uL (0.0-0.87); Eosinophils % 3.6 % (0.00-10.9); Hematocrit 28.1 VOL% (35.7-47.0); Hemoglobin 8.9 GM/DL (12.0-16.0); Immature Granulocytes % 5.9 %; Immature Granulocytes Absolute 0.58 #; Lymphocytes # 1.3 10*3/uL (1.4-4.0); Lymphocytes % 13.5 % (21.3-54.2); Mean Corpuscular HGB Conc 31.7 GM/DL (32-36); Mean Corpuscular Volume 89.8 FL (87-102); Mean Platelet Volume 10.2 FL (9.6-12.0); Monocytes # 0.7 10*3/uL (0.11-0.8); Monocytes % 7.4 % (1.7-12.7); NRBC # 0.02 10*3/uL; Neutrophils % 68.7 % (38.7-73.9); Platelet Count 348 T/CUMM (130-400); Red Blood Count 3.13 MC/CUMM (3.8-5.5); Red Cell Distribution Width 15.1 % (9.3-17.3); White Blood Count 9.91 T/CUMM (4-12)
[2022-08-20 06:11] LABS: Folate 7.71 NG/ML (5.38-24.0); Vitamin B12 1758 PG/ML (211-911)
[2022-08-20 06:16] LABS: % Iron Saturation 44.3 % (18-50); Ferritin 90.7 ng/mL (8-252)
[2022-08-20 06:36] LABS: Anisocytosis 1+; Band Neutrophils 4 % (0-10); Burr Cells Few; Eosinophils 5 % (0-10); Lymphocytes 12 % (20-55); Myelocytes 2 %; Platelet Estimate Normal; Total Cells Counted 100
[2022-08-20 06:52] LABS: Calcium 8.2 MG/DL (8.5-10.1); Potassium 4.3 MMOL/L (3.5-5.1)
[2022-08-20 07:00] LABS: Sedimentation Rate-Westergren 110 MM/HR (0-30)
[2022-08-20] MEDS: INSULIN LISPRO 100 UNIT/ML SUBCUT SCH ×4 (07:46→20:45)
[2022-08-20] MEDS: hydrALAZINE 25 MG TABLET PO SCH ×3 (08:57→20:45)
[2022-08-20] MEDS: DAPAGLIFLOZIN 5 MG TABLET PO SCH (08:57)
[2022-08-20] MEDS: LINACLOTIDE 145 MCG CAPSULE PO SCH (08:57)
[2022-08-20] MEDS: ISOSORBIDE MONONITRATE 60 MG TABLET PO SCH (08:57)
[2022-08-20] MEDS: ASPIRIN EC 81 MG TABLET PO SCH (08:57)
[2022-08-20] MEDS: PANTOPRAZOLE 40 MG VIAL IV SCH ×2 (08:58→20:49)
[2022-08-20] MEDS: AZITHROMYCIN INJ 500 MG in SODIUM CHLORIDE 0.9% 250 ML IV SCH (08:58)
[2022-08-20] MEDS: DOCUSATE SODIUM 100 MG CAPSULE PO SCH ×2 (12:43→22:34)
[2022-08-20] MEDS: POLYETHYLENE GLYCOL POWDER 17 GM PACK PO SCH (12:44)
[2022-08-20] MEDS: ONDANSETRON 4 MG/2 ML VIAL IV PRN (17:20)
[2022-08-20] MEDS: PROMETHAZINE 25 MG/1 ML VIAL IM PRN (19:48)
[2022-08-20] MEDS: MONTELUKAST 10 MG TABLET PO SCH (20:45)
[2022-08-21] MEDS: DILTIAZEM 30 MG TABLET PO SCH ×4 (00:46→17:15)
[2022-08-21 06:17] LABS: Basophils # 0.1 10*3/uL (0.0-0.2); Basophils % 0.8 % (0.0-0.8); Eosinophils # 0.3 10*3/uL (0.0-0.87); Eosinophils % 3.1 % (0.00-10.9); Hematocrit 26.8 VOL% (35.7-47.0); Hemoglobin 8.6 GM/DL (12.0-16.0); Immature Granulocytes % 5.8 %; Lymphocytes # 1.2 10*3/uL (1.4-4.0); Lymphocytes % 11.1 % (21.3-54.2); Mean Corpuscular HGB Conc 32.1 GM/DL (32-36); Mean Corpuscular Volume 88.7 FL (87-102); Monocytes # 0.8 10*3/uL (0.11-0.8); Monocytes % 7.4 % (1.7-12.7); NRBC # 0.02 10*3/uL; Neutrophils % 71.8 % (38.7-73.9); Platelet Count 370 T/CUMM (130-400); Red Blood Count 3.02 MC/CUMM (3.8-5.5); Red Cell Distribution Width 15.5 % (9.3-17.3); White Blood Count 10.33 T/CUMM (4-12)
[2022-08-21 06:39] LABS: Band Neutrophils 2 % (0-10); Eosinophils 1 % (0-10); Hypochromia Slight; Lymphocytes 10 % (20-55); Microcytosis Slight; Platelet Estimate Adequate; Total Cells Counted 100
[2022-08-21 06:44] LABS: Calcium 8.1 MG/DL (8.5-10.1); Osmolality,Calculated 294.3 MOS/KG (273-304); Potassium 4.6 MMOL/L (3.5-5.1)
[2022-08-21] MEDS ORDERED: METOCLOPRAMIDE 10 MG/2 ML VIAL IV SCH (09:00)
[2022-08-21] MEDS: AZITHROMYCIN INJ 500 MG in SODIUM CHLORIDE 0.9% 250 ML IV SCH (09:09)
[2022-08-21] MEDS: PANTOPRAZOLE 40 MG VIAL IV SCH ×2 (09:09→21:52)
[2022-08-21] MEDS: POLYETHYLENE GLYCOL POWDER 17 GM PACK PO SCH (09:10)
[2022-08-21] MEDS: ISOSORBIDE MONONITRATE 60 MG TABLET PO SCH (09:21)
[2022-08-21] MEDS: BISACODYL 5 MG TABLET PO SCH ×2 (09:21→17:08)
[2022-08-21] MEDS: ASPIRIN EC 81 MG TABLET PO SCH (09:21)
[2022-08-21] MEDS: DAPAGLIFLOZIN 5 MG TABLET PO SCH (09:21)
[2022-08-21] MEDS: DOCUSATE SODIUM 100 MG CAPSULE PO SCH ×2 (09:21→21:51)
[2022-08-21] MEDS: hydrALAZINE 25 MG TABLET PO SCH ×3 (09:21→21:51)
[2022-08-21] MEDS: INSULIN LISPRO 100 UNIT/ML SUBCUT SCH ×4 (09:22→21:53)
[2022-08-21 10:43] LABS: Hemoglobin A1 (Alkaline) 97.8 % (96.5-98.5); Hemoglobin A2 (Alkaline) 2.2 % (1.5-3.5)
[2022-08-21] MEDS ORDERED: POLYETHYLENE GLYCOL POWDER 255 GM BOTTLE PO ONE (18:00)
[2022-08-21] MEDS: MONTELUKAST 10 MG TABLET PO SCH (21:51)
[2022-08-21] MEDS: cefTRIAXone 2,000 MG in SODIUM CHLORIDE 0.9% 100 ML IV SCH (21:54)
[2022-08-22] MEDS: BISACODYL 5 MG TABLET PO SCH (00:25)
[2022-08-22] MEDS: DILTIAZEM 30 MG TABLET PO SCH ×4 (00:25→17:08)
[2022-08-22] MEDS: ONDANSETRON 4 MG/2 ML VIAL IV PRN ×3 (03:46→19:41)
[2022-08-22] MEDS: LACTATED RINGERS 1,000 ML IV SCH (07:40)
[2022-08-22] MEDS ORDERED: MIDAZOLAM 2 MG/2 ML VIAL ONE (09:39)
[2022-08-22] MEDS: INSULIN LISPRO 100 UNIT/ML SUBCUT SCH ×4 (09:44→21:23)
[2022-08-22] MEDS ORDERED: LIDOCAINE 2% 5 ML VIAL ONE (09:49)
[2022-08-22] MEDS ORDERED: propofoL 200 MG/20 ML VIAL IV ONE (09:49)
[2022-08-22] MEDS: hydrALAZINE 25 MG TABLET PO SCH ×3 (11:21→21:22)
[2022-08-22] MEDS: LINACLOTIDE 145 MCG CAPSULE PO SCH (11:33)
[2022-08-22] MEDS: PANTOPRAZOLE 40 MG VIAL IV SCH ×2 (11:34→21:24)
[2022-08-22] MEDS: DOCUSATE SODIUM 100 MG CAPSULE PO SCH ×2 (11:34→21:23)
[2022-08-22] MEDS: ISOSORBIDE MONONITRATE 60 MG TABLET PO SCH (11:34)
[2022-08-22] MEDS: DAPAGLIFLOZIN 5 MG TABLET PO SCH (11:35)
[2022-08-22] MEDS: ASPIRIN EC 81 MG TABLET PO SCH (11:35)
[2022-08-22] MEDS: AZITHROMYCIN INJ 500 MG in SODIUM CHLORIDE 0.9% 250 ML IV SCH (11:35)
[2022-08-22] MEDS: POLYETHYLENE GLYCOL POWDER 17 GM PACK PO SCH (11:35)
[2022-08-22 11:47] LABS: Basophils # 0.1 10*3/uL (0.0-0.2); Basophils % 0.7 % (0.0-0.8); Eosinophils # 0.3 10*3/uL (0.0-0.87); Eosinophils % 2.4 % (0.00-10.9); Hematocrit 29.4 VOL% (35.7-47.0); Hemoglobin 9.3 GM/DL (12.0-16.0); Immature Granulocytes % 5.1 %; Immature Granulocytes Absolute 0.54 #; Lymphocytes # 1.2 10*3/uL (1.4-4.0); Lymphocytes % 11.7 % (21.3-54.2); Mean Corpuscular HGB Conc 31.6 GM/DL (32-36); Mean Corpuscular Volume 89.1 FL (87-102); Mean Platelet Volume 9.7 FL (9.6-12.0); Monocytes # 0.7 10*3/uL (0.11-0.8); Monocytes % 6.5 % (1.7-12.7); Neutrophils % 73.6 % (38.7-73.9); Platelet Count 383 T/CUMM (130-400); Red Cell Distribution Width 15.6 % (9.3-17.3); White Blood Count 10.54 T/CUMM (4-12)
[2022-08-22 13:04] LABS: Eosinophils 4 % (0-10); Lymphocytes 5 % (20-55); Metamyelocytes 2 %; Platelet Estimate Increased
[2022-08-22 13:05] LABS: Ovalocytes Slight
[2022-08-22 13:07] LABS: Total Cells Counted 100
[2022-08-22 18:11] LABS: Soluble Transf Receptor (sTfR) 2.5 mg/L (1.8 - 4.6)
[2022-08-22] MEDS: MONTELUKAST 10 MG TABLET PO SCH (21:22)
[2022-08-22] MEDS: cefTRIAXone 2,000 MG in SODIUM CHLORIDE 0.9% 100 ML IV SCH (21:25)
[2022-08-22] MEDS: PROMETHAZINE 25 MG/1 ML VIAL IM PRN (21:31)
[2022-08-23] MEDS: DILTIAZEM 30 MG TABLET PO SCH ×3 (00:49→11:57)
[2022-08-23 05:16] LABS: Basophils # 0.1 10*3/uL (0.0-0.2); Basophils % 0.7 % (0.0-0.8); Eosinophils # 0.3 10*3/uL (0.0-0.87); Hematocrit 26.8 VOL% (35.7-47.0); Hemoglobin 8.2 GM/DL (12.0-16.0); Immature Granulocytes % 4.7 %; Immature Granulocytes Absolute 0.41 #; Lymphocytes # 1.2 10*3/uL (1.4-4.0); Lymphocytes % 13.8 % (21.3-54.2); Mean Corpuscular HGB Conc 30.6 GM/DL (32-36); Mean Corpuscular Volume 90.8 FL (87-102); Monocytes # 0.8 10*3/uL (0.11-0.8); Monocytes % 8.8 % (1.7-12.7); Platelet Count 389 T/CUMM (130-400); Red Blood Count 2.95 MC/CUMM (3.8-5.5); Red Cell Distribution Width 16.1 % (9.3-17.3); White Blood Count 8.67 T/CUMM (4-12)
[2022-08-23 05:51] LABS: Calcium 8.5 MG/DL (8.5-10.1); Osmolality,Calculated 292.8 MOS/KG (273-304); Potassium 4.2 MMOL/L (3.5-5.1)
[2022-08-23] MEDS: LACTATED RINGERS 1,000 ML IV SCH (07:50)
[2022-08-23] MEDS: PANTOPRAZOLE 40 MG VIAL IV SCH (08:40)
[2022-08-23] MEDS: DOCUSATE SODIUM 100 MG CAPSULE PO SCH (08:40)
[2022-08-23] MEDS: LINACLOTIDE 145 MCG CAPSULE PO SCH (08:41)
[2022-08-23] MEDS: DAPAGLIFLOZIN 5 MG TABLET PO SCH (08:41)
[2022-08-23] MEDS: INSULIN LISPRO 100 UNIT/ML SUBCUT SCH ×2 (08:41→11:57)
[2022-08-23] MEDS: ASPIRIN EC 81 MG TABLET PO SCH (08:41)
[2022-08-23] MEDS: hydrALAZINE 25 MG TABLET PO SCH (08:41)
[2022-08-23] MEDS: ISOSORBIDE MONONITRATE 60 MG TABLET PO SCH (08:41)
[2022-08-23] MEDS: POLYETHYLENE GLYCOL POWDER 17 GM PACK PO SCH (08:42)
[2022-08-23] MEDS: AZITHROMYCIN INJ 500 MG in SODIUM CHLORIDE 0.9% 250 ML IV SCH (08:44)
[2022-08-23 11:58] VITALS: BP 125/44
== END 2022-08-23 14:20 | disposition home health service (06) | DRG 380 ==
LOC: N.ED 15:55 → N.EDINP 15:55 → N.2E 20:37 → SUATTDRO 08-15 18:10
PROVIDERS: ADMIT Hospitalist; ATTEND Family Medicine
PROC: COLONBX (2022-08-22 07:50)